=== PATIENT | female | born 1950 | race Two or more races ===

== ENCOUNTER 2017-01-31 10:24 | Emergency (ER) | payer MEDICAID ==
[~2017-01-31] VITALS: Ht 160 cm; Wt 74.8 kg
[~2017-01-31 10:24] MED LIST: ENAL2.5T PO; LEVO100T8 PO; LORA2TAB10 PO; PANT1INJ3 PO; PAR20T PO; [UNRECOGNIZED DRUG - CODE] PO
[2017-01-31 12:06] LABS: Basophils # (auto) 0 uL; Basophils % (auto) 0.7 % (0.0-2.0); Eosinophils # (auto) 0.2 uL; Hematocrit 40.2 % (36.0-46.0); Hemoglobin 13.7 g/dL (12.2-16.2); Lymphocytes # (auto) 1.4 uL; Lymphocytes % (auto) 23.8 % (10.0-50.0); Mean Corpuscular Hemoglobin 28.4 pg (28.0-32.0); Mean Corpuscular Hgb Conc. 34.1 g/dL (32.0-36.0); Mean Corpuscular Volume 83.3 fL (80.0-100.0); Monocytes # (auto) 0.6 uL; Monocytes % (auto) 9.3 % (0.0-12.0); Neutrophils # (auto) 3.8 uL; Neutrophils % (auto) 62.2 % (37.0-80.0); Platelet Count (auto) 205 10^3/uL (140-450); Red Blood Cells 4.83 10^6/uL (4.0-5.20); Red Cell Distribution Width 12.8 % (11.8-14.3)
[2017-01-31 12:24] LABS: Alanine Aminotransferase 35 U/L (13-56); Albumin 3.7 g/dL (3.4-5.0); Anion Gap 5 (5-15); Aspartate Aminotransferase 22 U/L (15-37); BUN/Creatinine Ratio 16.7; Blood Urea Nitrogen 13 mg/dL (7-18); Carbon Dioxide 29 mmol/L (21-32); Chloride 105 mmol/L (98-107); GFR African American 95 mL/min; GFR Non-African American 78 mL/min; Glucose 110 mg/dL (74-106); Sodium 139 mmol/L (136-145)
[2017-01-31 12:29] LABS: Alkaline Phosphatase 86 U/L (45-117); Bilirubin, Total 0.5 mg/dL (0.2-1.0); Total Protein 7.4 g/dL (6.4-8.2)
[2017-01-31 15:58] VITALS: BP 137/81
[2017-01-31] MEDS ORDERED: HYDROmorphone HCL 2 MG/ML VL IV ONE (16:15)
[2017-01-31] MEDS ORDERED: ONDANSETRON HCL 4 MG/2 ML VIAL IV ONE (16:15)
== END 2017-01-31 17:03 | disposition left against medical advice (07) ==
LOC: ER 10:24
DX: I10 Essential (primary) hypertension (principal); F41.9 Anxiety disorder, unspecified; R07.9 Chest pain, unspecified; R20.0 Anesthesia of skin; E11.9 Type 2 diabetes mellitus without complications; E78.5 Hyperlipidemia, unspecified; Z88.0 Allergy status to penicillin
CPT/HCPCS: 36415; 71020; 80053; 84484; 85025; 93005

== ENCOUNTER 2021-01-09 13:56 | Emergency (ER) | payer MEDICAID ==
[~2021-01-09] VITALS: Ht 165.1 cm; Wt 63.5 kg
[~2021-01-09 13:56] MED LIST changes: -ENAL2.5T PO; +ENAL2.5T7 PO; -LORA2TAB10 PO; +LORA2TAB12 PO; +[UNRECOGNIZED DRUG - CODE] PO; -[UNRECOGNIZED DRUG - CODE] PO
[2021-01-09 14:53] VITALS: BP 124/67
[2021-01-09 15:20] LABS: Basophils # (auto) 0 10 ^3/uL (0-0.2); Basophils % (auto) 0.5 % (0.0-2.0); Eosinophils # (auto) 0.1 10 ^3/uL (0-0.8); Eosinophils % (auto) 1.1 % (0.0-7.0); Hematocrit 40.8 % (36.0-46.0); Hemoglobin 13.3 g/dL (12.2-16.2); Lymphocytes # (auto) 0.9 10 ^3/uL (0.4-5.4); Lymphocytes % (auto) 14.5 % (10.0-50.0); Mean Corpuscular Hemoglobin 27.1 pg (28.0-32.0); Mean Corpuscular Hgb Conc. 32.5 g/dL (32.0-36.0); Mean Corpuscular Volume 83.2 fL (80.0-100.0); Monocytes # (auto) 0.5 10 ^3/uL (0-1.3); Monocytes % (auto) 8.5 % (0.0-12.0); Neutrophils # (auto) 4.6 10 ^3/uL (1.6-8.6); Neutrophils % (auto) 75.4 % (37.0-80.0); Nucleated Red Blood Cells % 0.1 %; Red Blood Cells 4.91 10^6/uL (4.0-5.20); Red Cell Distribution Width 13.4 % (11.8-14.3); White Blood Cell 6.2 10^3/uL (4.4-10.8)
[2021-01-09 15:45] LABS: Anion Gap 4 (5-15); Blood Urea Nitrogen 13 mg/dL (7-18); Calcium 8.6 mg/dL (8.5-10.1); Carbon Dioxide 28 mmol/L (21-32); Chloride 104 mmol/L (98-107); Glucose 111 mg/dL (74-106); Magnesium 2.6 mg/dL (1.6-2.6); Potassium 3.6 mmol/L (3.5-5.1); Sodium 136 mmol/L (136-145)
[2021-01-09 15:50] LABS: Alanine Aminotransferase 20 U/L (13-56); Alkaline Phosphatase 108 U/L (45-117); Aspartate Aminotransferase 21 U/L (15-37); BUN/Creatinine Ratio 14.1; Bilirubin, Total 0.5 mg/dL (0.2-1.0); GFR African American 77 mL/min; GFR Non-African American 64 mL/min; Total Protein 7.4 g/dL (6.4-8.2)
[2021-01-09] MEDS ORDERED: AZITHROMYCIN 200 MG/5 ML ORAL SUSP PO ONE (17:30)
[2021-01-09] MEDS ORDERED: cefTRIAXone 1GM/50ML D5W 50 ML IV ONE (17:30)
== END 2021-01-09 17:48 | disposition left against medical advice (07) ==
LOC: ER 13:56 → EDBD 13:56 → ER 17:47
DX: R05.9 Cough, unspecified (principal); R07.89 Other chest pain; I10 Essential (primary) hypertension; E11.9 Type 2 diabetes mellitus without complications; E78.5 Hyperlipidemia, unspecified; E03.9 Hypothyroidism, unspecified; Z90.710 Acquired absence of both cervix and uterus; Z79.899 Other long term (current) drug therapy; Z88.0 Allergy status to penicillin; Z20.822 Contact with and (suspected) exposure to COVID-19
CPT/HCPCS: 36415; 71046; 80053; 83605; 83735; 84484; 85025; 87040; 87426; 93005

== ENCOUNTER 2024-06-29 10:32 | Emergency (ER) | payer MEDICAID ==
[~2024-06-29] VITALS: Ht 167.6 cm; Wt 70.3 kg
[~2024-06-29 10:32] MED LIST changes: +ENAL1TAB42 PO; -ENAL2.5T7 PO; +LORA-1105 PO; -LORA2TAB12 PO
--- NOTE | 2024-06-29 10:58 | ED.PDOC ---
HPI Comments HPI: 73 y/o F, with PMHX of DM, HTN, HLD, and anxiety presents to the ED for CC of chest pain. Patient states, that she has been experiencing left sided chest pain that radiates to her right arm x1day. Patient relays, that she has associated symptoms of shortness of breath that worsens with light exertion and improves when at rest. Patient complains of current 8/10 pain. Patient denies fever, chills, body-aches, nausea, vomiting, palpitations, or dizziness. No other symptoms or modifying factors at this time. VITALS: Temp: BP: HR: RR: SPO2 Past medical history: DM, HTN, HLD, ANXIETY Past surgical history: HYSTERECTOMY HPI: Poor Historian. REVIEW OF SYSTEMS: CONSTITUTIONAL: Denies acute: fever, diaphoresis, chills, generalized weakness. HEAD: Denies acute: headache, photophobia Eyes: Denies acute: Double vision, vision loss, eye pain, eye discharge. EARS: Denies acute: tinnitus, hearing loss, ear discharge, ear pain, THROAT: Denies acute: sore throat, swelling, difficulty swallowing , pain with swallowing, change in voice. NECK: Denies acute: neck pain, neck swelling, stiff neck. HEART: Denies acute : palpitations, LUNGS: Denies acute: wheezing, cough, hemoptysis ABDOMEN: Denies acute: abdominal pain, Nausea, Vomiting, diarrhea, melena , hematemesis, hematochezia SKIN: Denies acute: rash, redness, lesions, itchiness. EXTREMITIES: Denies acute: calf pain, numbness, tingling, weakness, denies pain in extremity. Denies acute: Low back pain. Neuro: Denies acute: focal neurological deficit, motor or sensory focal neurological deficit, tremors, seizure like activity, confusion, dizziness, change in mental status, loss of bowel or bladder function, cauda equina like symptoms. : Denies acute: dysuria, hematuria, flank pain, increase in urinary frequency. PSYCH: Denies acute: hallucination, suicidal ideation, homicidal ideation. FEMALE: Denies acute: abnormal vaginal bleeding, foul odor, unusual discharge. PHYSICAL EXAM: General: ----mild----acute distress, awake and alert. Head: normocephalic, atraumatic. Neck: supple, trachea is midline, no swelling. Throat: Normal phonation. Eyes:, no erythema, no purulent discharge, no proptosis, no icterus. Heart: regular rate, regular rhythm, no significant murmur appreciated. Lungs: no apparent respiratory distress, Able to speak in full sentences. No wheezing, no rhonchi, no crackles. No stridors Clear to auscultation bilaterally. Abdomen: non tender to palpation, non distended, soft, no guarding, no rebound, + bowel sounds. Neuro: Awake, Alert, oriented to name, self, situation, follows commands GCS=15. Speech is normal. Skin: no petechia, no purpura, no cyanosis, non-pale, not jaundice. Lower extremities: --no - Pitting edema no deformity, no focal swelling, no calf TTP. Makes eye contact. moves all four extremities. Face: no apparent facial droop. Ambulating in the ED independently. ED COURSE: Chief Complaint: Chest Pain Time Seen by MD: 10:50 Primary Care Provider: DR AWAD Reviewed Notes: Nurses Notes, Medications, Allergies Allergies: Coded Allergies: Penicillins (Unverified Allergy, Unknown, 08/24/14) Home Meds Reported Medications Paroxetine (PAXIL TABLET) 20 Mg Tb, 30 MG PO DAILY, #30 08/24/14 Pantoprazole Sodium (PANTOPRAZOLE SODIUM) 40 Mg Inj, 40 MG PO DAILY, #30 08/24/14 Metformin Hydrochloride (Glumetza) 500 Mg Tab, 500 MG PO DAILY, #30 08/24/14 Lorazepam (Lorazepam) 2 Mg Tab, 2 MG PO QHSP PRN for ANXIETY, #30 08/24/14 Enalapril Maleate (Enalapril Maleate) 2.5 Mg Tab, 1 TAB PO DAILY, #08/24/14 Levothyroxine Sodium (Levothyroxine Sodium) 100 Mcg Tab, 100 MCG PO DAILY, #30 08/24/14 Information Source: Patient Mode of Arrival: Ambulatory Severity: Moderate Timing: Days Duration: Since onset Prehospital treatment: None Location: Chest (L) Radiation: Arm (R) Quality: Pressure Onset: At Rest Cardiac Risk Factors: HTN, Diabetes PE Risk Factors: None History of: None Modifying Factors: Nothing Associated Signs and Symptoms: SOB Was a procedure done? Was a procedure done?: No CP Differential Dx Differential Diagnosis: N/A Differential Diagnosis: HTN Essential, HTN Accelerated Differential Diagnosis: Chest Wall Pain, Costochondritis, Esophageal reflux/spasm, Gastritis, Pneumonia, Other (Ddx include but not limitied to gastritis, musculoskeletal pain, radiculopathy, atypical chest pain, dissection, aneurysm, ACS, unstable angina, hiatal hernia, GERD, anxiety, costochondritis, PE, pneumothroax, neoplasm, cardiac ischemia, drug abuse, anemia.) X-Ray, Labs, Meds, VS Vital Signs Date Time Temp Pulse Resp B/P (MAP) Pulse Ox O2 Delivery O2 Flow Rate FiO2 06/29/24 17:02 97.7 63 18 155/68 (97) 97 97.7 06/29/24 13:43 55 06/29/24 11:30 86 06/29/24 11:17 103/56 06/29/24 11:11 90 19 97 Room Air 06/29/24 11:11 98.2 90 19 103/56 (72) 97 98.2 06/29/24 10:39 97.5 89 18 104/49 (67) 96 97.5 06/29/24 10:36 85 Lab Test 06/29/24 17:50 06/29/24 15:06 06/29/24 14:00 06/29/24 11:55 Range/Units Troponin I High Sensitivity 35 *H 43 *H 42 *H 15 </=34 ng/L Test 06/29/24 10:42 Range/Units White Blood Count 8.4 4.4-10.8 10^3/uL Red Blood Count 5.16 4.0-5.20 10^6/uL Hemoglobin 14.8 12.2-16.2 g/dL Hematocrit 43.6 36.0-46.0 % Mean Corpuscular Volume 84.5 80.0-100.0 fL Mean Corpuscular Hemoglobin 28.8 28.0-32.0 pg Mean Corpuscular Hemoglobin Concent 34.1 32.0-36.0 g/dL Red Cell Distribution Width 13.3 11.8-14.3 % Platelet Count 223 140-450 10^3/uL Mean Platelet Volume 8.1 6.9-10.8 fL Neutrophils (%) (Auto) 51.0 37.0-80.0 % Lymphocytes (%) (Auto) 37.0 10.0-50.0 % Monocytes (%) (Auto) 7.8 0.0-12.0 % Eosinophils (%) (Auto) 3.4 0.0-7.0 % Basophils (%) (Auto) 0.8 0.0-2.0 % Neutrophils # (Auto) 4.3 1.6-8.6 10 ^3/uL Lymphocytes # (Auto) 3.1 0.4-5.4 10 ^3/uL Monocytes # (Auto) 0.6 0-1.3 10 ^3/uL Eosinophils # (Auto) 0.3 0-0.8 10 ^3/uL Basophils # (Auto) 0.1 0-0.2 10 ^3/uL Nucleated Red Blood Cells 0.4 % Sodium Level 140 136-145 mmol/L Potassium Level 4.4 3.5-5.1 mmol/L Chloride Level 108 H 98-107 mmol/L Carbon Dioxide Level 24 20-31 mmol/L Anion Gap 8 5-15 Blood Urea Nitrogen 17 9-23 mg/dL Creatinine 0.95 0.550-1.02 mg/dL Glomerular Filtration Rate Calc 63 >90 mL/min BUN/Creatinine Ratio 17.9 10.0-20.0 Serum Glucose 162 H 74-106 mg/dL Calcium Level 10.0 8.7-10.4 mg/dL Total Bilirubin 0.5 0.2-1.0 mg/dL Aspartate Amino Transferase (AST) 22 13-40 U/L Alanine Aminotransferase (ALT) 19 7-40 U/L Alkaline Phosphatase 118 H 46-116 U/L Troponin I High Sensitivity 7 </=34 ng/L B-Type Natriuretic Peptide 228.16 0-100 pg/mL Total Protein 7.6 5.7-8.2 g/dL Albumin 4.6 3.2-4.8 g/dL Current Medications Medications (Trade) Dose Ordered Sig/Norberto Route Start Time Stop Time Status Last Admin Sodium Chloride 500 ml @ 500 mls/hr Q1H ONCE IV 06/29/24 11:30 06/29/24 12:29 DC 06/29/24 11:17 [facility] [address] [facility] [address] Ph: [phone] DIAGNOSTIC IMAGING Diagnostic Imaging Report : [id number] Signed PATIENT: BEN MART ACCT: [id number] UNIT: [id number] : 1950 LOC: ER ROOM / BED: / AGE / SEX: 73 / F ADM STATUS: REG ER SERVICE 1046 ORDERING PHYSICIAN: SAMI DUMONT DO PROCEDURE(s): CXRP - CHEST PORTABLE REASON: CP ORDER NUMBER(s): [id number], ACCESSION NUMBER(s): [id number] EXAM: XY CHEST PORTABLE HISTORY: CP COMPARISON: Chest x-ray dated 01/09/2021. TECHNIQUE: Portable AP view of the chest was performed. FINDINGS: No pneumothorax, consolidative infiltrates, or pulmonary edema. The heart is not enlarged. The thoracic aorta is calcific. There is moderate thoracic degenerative disc disease. There is slight lower thoracic levoscoliosis. IMPRESSION: 1. No acute intrathoracic process. 2. Atherosclerotic vascular disease. ATED BY: MATTI ENG MD DICTATED DATE/TIME: 06/29/241104 SIGNED BY: MATTI ENG MD SIGNED DATE/TIME: 06/29/241104 CC: Time of 1ST Reevaluation: 11:20 Reevaluation 1ST: Unchanged Patient Education/Counseling: Diagnosis, Treatment Family Education/Counseling: No Family Present Comments Patient presented with the above HPI.---cardiac---workup was initiated. patient was found with the above mentioned diagnosis. the following medications were ordered: please refer to order lists of meds and tests obtained by myself Dr. Dumont. Patient ED course and VS have been stabilized. Patient has been reassessed in the ED and remained in a stable condition. Pertinent incidental findings were discussed with the patient and/or family. Patient/family voices understanding and is agreeable with plan. Patient has been observed in the ED adequate length of time to insure improvement/stability. Escalation of care considered: Consideration of escalation to observation or admission Patient was found with elevated troponin. Noted T-wave inversion in lead three and V3 Patient was ADMITTED to the medicine team for further evaluation and treatment of their presentation. All the reports of any imaging studies that were ordered by myself were reviewed by myself. Departure 1 Departure Time of Disposition: 11:13 Impression: Primary Impression: Chest pain Additional Impression: Elevated troponin Disposition: ADMITTED INPATIENT Admit to: Tele Condition: Guarded Additional Instructions: [facility] [address] [facility] [address] Ph: [phone] DIAGNOSTIC IMAGING Diagnostic Imaging Report : [id number] Signed PATIENT: BEN MART ACCT: [id number] UNIT: [id number] : 1950 LOC: ER ROOM / BED: / AGE / SEX: 73 / F ADM STATUS: REG ER SERVICE 1046 ORDERING PHYSICIAN: SAMI DUMONT DO PROCEDURE(s): CXRP - CHEST PORTABLE REASON: CP ORDER NUMBER(s): [id number], ACCESSION NUMBER(s): [id number] EXAM: XY CHEST PORTABLE HISTORY: CP COMPARISON: Chest x-ray dated 01/09/2021. TECHNIQUE: Portable AP view of the chest was performed. FINDINGS: No pneumothorax, consolidative infiltrates, or pulmonary edema. The heart is not enlarged. The thoracic aorta is calcific. There is moderate thoracic degenerative disc disease. There is slight lower thoracic levoscoliosis. IMPRESSION: 1. No acute intrathoracic process. 2. Atherosclerotic vascular disease. ATED BY: MATTI ENG MD DICTATED DATE/TIME: 06/29/241104 SIGNED BY: MATTI ENG MD SIGNED DATE/TIME: 06/29/24 110 CC: Discharged With: Self Critical Care Note Critical Care Time?: Yes (45 min-critical care time only) Stability Stability form required: No Heart Score Heart Score: Heart Score Response (Comments) Value History Moderate Suspicious 1 EKG N/A 0 Age >65 2 Risk Factors >3 or Hx ASHD 2 Troponin 1-2 x's Normal limit 1 Total 6 I personally scribed for SAMI DUMONT DO ([email or web address]) on 06/29/24 at 10:58. Electronically submitted by Lashae Batista ([email or web address]). I personally scribed for SAMI DUMONT DO ([email or web address]) on 06/29/24 at 12:10. Electronically submitted by Lashae Batista ([email or web address]). I personally scribed for SAMI DUMONT DO ([email or web address]) on 06/29/24 at 19:20. Electronically submitted by Lashae Batista [email or web address]). SAMI DUMONT DO Jun 29, 2024 10:58
[2024-06-29 11:05] LABS: Basophils # (auto) 0.1 10 ^3/uL (0-0.2); Basophils % (auto) 0.8 % (0.0-2.0); Eosinophils # (auto) 0.3 10 ^3/uL (0-0.8); Eosinophils % (auto) 3.4 % (0.0-7.0); Hematocrit 43.6 % (36.0-46.0); Hemoglobin 14.8 g/dL (12.2-16.2); Lymphocytes # (auto) 3.1 10 ^3/uL (0.4-5.4); Mean Corpuscular Hemoglobin 28.8 pg (28.0-32.0); Mean Corpuscular Hgb Conc. 34.1 g/dL (32.0-36.0); Mean Corpuscular Volume 84.5 fL (80.0-100.0); Monocytes # (auto) 0.6 10 ^3/uL (0-1.3); Monocytes % (auto) 7.8 % (0.0-12.0); Neutrophils # (auto) 4.3 10 ^3/uL (1.6-8.6); Nucleated Red Blood Cells % 0.4 %; Platelet Count (auto) 223 10^3/uL (140-450); Red Blood Cells 5.16 10^6/uL (4.0-5.20); Red Cell Distribution Width 13.3 % (11.8-14.3); White Blood Cell 8.4 10^3/uL (4.4-10.8)
--- NOTE | 2024-06-29 11:07 | DVH ---
EXAM: XY CHEST PORTABLE HISTORY: CP COMPARISON: Chest x-ray dated 01/09/2021. TECHNIQUE: Portable AP view of the chest was performed. FINDINGS: No pneumothorax, consolidative infiltrates, or pulmonary edema. The heart is not enlarged. The thoracic aorta is calcific. There is moderate thoracic degenerative disc disease. There is slight lower thoracic levoscoliosis. IMPRESSION: 1. No acute intrathoracic process. 2. Atherosclerotic vascular disease.
[2024-06-29] MEDS: NITROGLYCERIN 0.4 MG SL TAB SL ONE (11:17)
[2024-06-29] MEDS: SODIUM CHLORIDE 0.9% 500 ML IV ONE (11:17)
[2024-06-29 11:20] LABS: Alanine Aminotransferase 19 U/L (7-40); Albumin 4.6 g/dL (3.2-4.8); Anion Gap 8 (5-15); Aspartate Aminotransferase 22 U/L (13-40); BUN/Creatinine Ratio 17.9 (10.0-20.0); Bilirubin, Total 0.5 mg/dL (0.2-1.0); Blood Urea Nitrogen 17 mg/dL (9-23); Carbon Dioxide 24 mmol/L (20-31); Potassium 4.4 mmol/L (3.5-5.1); Sodium 140 mmol/L (136-145); Total Protein 7.6 g/dL (5.7-8.2)
[2024-06-29 11:23] LABS: Alkaline Phosphatase 118 U/L (46-116); Chloride 108 mmol/L (98-107); Glucose 162 mg/dL (74-106)
[2024-06-29] MEDS: ASPirin-EC 325mg tab PO ONE (11:55)
[2024-06-29 17:02] VITALS: BP 155/68; PULSE 63; RESP 18; TEMP 97.7; O2SAT 97
--- NOTE | 2024-06-30 08:15 | ECG ---
[facility] Test Date: 2024-06-29 Test Time: 11:30:40 Pat Name: BEN MART Department: ED Room: Gender: F Cds Sales Advisor: radha : 1950 Requested By: SAMI DUMONT Order Number: [id number] Reading MD: Roni Cole Measurements Intervals [place] Rate: 86 P: 9 VT: 141 QRS: -10 QRSD: 79 T: 12 QT: 375 QTc: 449 Interpretive Statements Sinus rhythm Consider RVH or posterior infarct Left ventricular hypertrophy Borderline T abnormalities, anterior leads Minimal ST elevation, inferior leads Baseline wander in lead(s) I,II,aVR,aVF,V2,V3 Electronically Signed On 06-30-2024 22:13:30 PDT by Roni Cole Please click the below link to view image of tracing.
--- NOTE | 2024-06-30 12:35 | ECG ---
[facility] Test Date: 2024-06-29 Test Time: 13:43:04 Pat Name: BEN MART Department: ER Room: Gender: F Painter Set: JEANCARLOS : 1950 Requested By: SAMI DUMONT Order Number: [id number] Reading MD: Roni Cole Measurements Intervals [place] Rate: 55 P: 26 NE: 149 QRS: -8 QRSD: 122 T: 2 QT: 441 QTc: 422 Interpretive Statements Sinus rhythm Left ventricular hypertrophy Nonspecific T abnormalities, anterior leads Baseline wander in lead(s) V4 Electronically Signed On 06-30-2024 22:13:50 PDT by Roni Cole Please click the below link to view image of tracing.
--- NOTE | 2024-06-30 14:36 | ECG ---
[facility] Test Date: 2024-06-29 Test Time: 10:36:56 Pat Name: BEN MART Department: ER Room: Gender: F Ribbon Blockmaker: PEDRITO : 1950 Requested By: SAMI DUMONT Order Number: [id number] Reading MD: Roni Cole Measurements Intervals [place] Rate: 85 P: 27 FL: 143 QRS: -18 QRSD: 92 T: 15 QT: 363 QTc: 432 Interpretive Statements Sinus rhythm Abnormal R-wave progression, early transition Left ventricular hypertrophy Inferior infarct, old Electronically Signed On 06-30-2024 22:13:15 PDT by Roni Cole Please click the below link to view image of tracing.
== END 2024-06-29 21:30 | disposition left against medical advice (07) ==
LOC: ER 10:32
DX: R07.89 Other chest pain (principal); R79.89 Other specified abnormal findings of blood chemistry; I10 Essential (primary) hypertension; E11.9 Type 2 diabetes mellitus without complications; E78.5 Hyperlipidemia, unspecified; F41.9 Anxiety disorder, unspecified; Z79.84 Long term (current) use of oral hypoglycemic drugs; Z79.899 Other long term (current) drug therapy; Z90.710 Acquired absence of both cervix and uterus; Z88.0 Allergy status to penicillin
CPT/HCPCS: 36415; 71045; 80053; 83880; 84484; 85025; 93005; 96360; 99285; J7040